=== PATIENT | female | born 1940 | race African-American/Black ===

== ENCOUNTER 2016-07-12 05:44 | Inpatient (IN) | payer MEDICARE, BC ==
--- NOTE | 2016-07-11 09:30 | HP ---
HISTORY AND PHYSICAL: DATE OF VISIT: 07/08/16 DATE OF SURGERY: 07/12/16 PROCEDURE: Right total knee replacement. HISTORY OF PRESENT ILLNESS: The patient is a very pleasant 75-year-old female who presents today for a history and physical examination prior to undergoing a right total knee replacement. In brief, the patient was diagnosed with end- stage osteoarthritis of the right knee and has failed conservative measures such as anti- inflammatories and injections. She has elected to undergo a right total knee replacement by Dr. Farzana Mireles on 07/12/16. PAST MEDICAL HISTORY: 1. Mild persistent asthma, no exacerbation. 2. Gastroesophageal reflux disease. 3. Hypercholesterolemia. 4. History of ovarian malignancy, status post resection. 5. Postmenopausal. 6. Allergic rhinitis. 7. Osteoarthritis. 8. Borderline diabetes type 2, diet controlled. 9. Blind, left eye, congenital third nerve palsy. 10. Hypertension. PAST SURGICAL HISTORY: 1. HIPOLITO/BSO in 1989. 2. Arthroscopic knee surgery, 1998. 3. section x2. 4. Appendectomy. 5. Eye surgery. 6. Boil resection. MEDICATIONS: 1. Magnesium oxide 400 mg. 2. Hydrochlorothiazide 12.5 mg. 3. Active Film. 4. Klor-Con 10 mEq. 5. B complex. 6. Cranberry. 7. Ibuprofen 600 mg. 8. Vitamin D3. 9. Crestor 10 mg. 10. Diltiazem HCl ER 120 mg. 11. Advair Diskus 100/50 mcg/dose p.r.n. 12. Voltaren gel 1%. 13. 400 mg. 14. Aspirin 81 mg. 15. Vitamin B6 250 mg. 16. Fluticasone 500 mcg/ACT. 17. Albuterol inhaler p.r.n. ALLERGIES: PENICILLIN and BACTRIM, both cause skin swelling with rash. FAMILY MEDICAL HISTORY: Positive for lung cancer in father. Positive for high blood pressure in mother. SOCIAL HISTORY: No tobacco. No alcohol use. REVIEW OF SYSTEMS: General: Negative for fever, chills, or night sweats. No known difficulty with anesthesia. HEENT: Negative for headache, lightheadedness, or syncopal episodes. Integument: Negative for abrasions, lesions, or open wounds or difficulties with wound healing. Cardiothoracic: Negative for chest pain, palpitations, or edema. Positive for hypertension. Pulmonary: Negative for shortness of breath with exertion, chronic cough, or COPD. Positive for asthma; however, no recent exacerbation. GI: Negative for nausea, vomiting, or diarrhea. Positive for constipation. Positive for GERD. : Negative for nocturia, urinary frequency or urgency, or kidney problems. Positive history of UTIs with the last UTI being approximately 9 to 12 months ago. Musculoskeletal: Positive for chronic low back pain. Positive for right knee pain. Neuro: Negative for paresthesias or numbness. No history of seizure, strokes, or epilepsy. Endocrine: Positive for borderline diabetes, diet controlled. Negative for thyroid issues. Hematologic: Negative for easy bruising, anemia, or excessive bleeding. No history of DVT or PE. Infectious Disease: No history of hep C or HIV. Positive history of MRSA. PHYSICAL EXAMINATION GENERAL: A well appearing, in no acute distress, alert and oriented x3. VITAL SIGNS: Height 62 inches, weight 218 pounds, pulse 60, blood pressure sitting 120/62, and respirations 16. Pain level 3 and BMI 39.9. HEENT: Normocephalic, atraumatic. EOMI. NECK: Supple. Full range of motion. PULMONARY: Clear to auscultation bilaterally. No crackles, rhonchi, or wheezes. CARDIAC: Regular rate and rhythm. No murmurs, gallops, or rubs. ABDOMEN: Soft, nontender, and nondistended. Positive for obesity. Normoactive bowel sounds. Negative CVA tenderness bilaterally. NEUROLOGIC: Alert and oriented x3. Cranial nerves grossly intact. Sensation is intact to light touch bilateral lower extremities. MUSCULOSKELETAL: Posterior tibial pulses 2+ bilaterally. Positive moderate effusion noted in right knee, tenderness over the medial joint line. Negative calf tenderness on bilaterally. DIAGNOSTIC STUDIES/LAB DATA: Knee x-ray dated 06/06/16 showed osteoarthritis of the right knee, moderate to advanced. IMPRESSION: The patient is a very pleasant 75-year-old female who has elected to undergo a right total knee replacement with Dr. Farzana Mireles on 07/12/16. Percocet and Colace were sent to the [facility] for the patient preoperatively. She will undergo her preoperative clearance at the hospital today. She was seen by her primary care physician at [facility] and was deemed an intermediate risk for the surgery, which was discussed with the patient. She had no other questions or concerns with regards to the plan procedure and will call if any do arise. EMMA CEDENO [id number]/[facility] #: [id number] MTDGonzalez
[2016-07-12] MEDS ORDERED: Dexamethasone IV* 4 MG/ML 1 ML (4 MG) IV SLOW PU ONE (06:00)
[2016-07-12] MEDS ORDERED: Buffered Lidocaine 1% SYR 3ML* 3 ML/SYR SYRINGE INTRADERM ONE (06:00)
[2016-07-12] MEDS ORDERED: Clindamycin 900 MG IVPREMIX(* 900 MG/50 ML SDV IV ONE (06:03)
[2016-07-12] MEDS ORDERED: Dexamethasone IV* 4 MG/ML 1 ML (4 MG) ONE (06:03)
[2016-07-12] MEDS ORDERED: Buffered Lidocaine 1% SYR 3ML* 3 ML/SYR SYRINGE ONE (06:03)
[2016-07-12] MEDS ORDERED: Midazolam* 1 MG/ML 5 ML VIAL (5 MG) ONE (07:24)
[2016-07-12] MEDS ORDERED: KETAMINE HCL* 50 MG/ML 10 ML VIAL ONE (07:24)
[2016-07-12] MEDS ORDERED: Morphine PF AMP (0.5MG/ML)* 5 MG/10 ML AMP ONE (07:24)
[2016-07-12] MEDS ORDERED: Propofol* 10 MG/ML 20 ML BTL IV PUSH ONE (07:25)
[2016-07-12] MEDS ORDERED: Ondansetron INJ* 2 MG/ML VIAL ONE (07:25)
[2016-07-12] MEDS ORDERED: Bupivacaine 0.5% W/EPI SDV* 30 ML VIAL ONE (08:22)
[2016-07-12] MEDS ORDERED: Naloxone* 0.4 MG/ML 1 ML VIAL IV PRN (08:40)
[2016-07-12] MEDS ORDERED: Nalbuphine* 20 MG/ML 1 ML VIAL IV PRN ×2 (08:40)
[2016-07-12] MEDS ORDERED: Ondansetron INJ* 2 MG/ML VIAL IV PRN ×2 (08:40→10:17)
[2016-07-12] MEDS ORDERED: oxyCODONE/Acetamin 5/325 MG* TAB PO PRN (08:40)
[2016-07-12] MEDS ORDERED: fentaNYL* 50 MCG/ML 2 ML VIAL (100 MCG VIAL) IV PRN (08:40)
[2016-07-12] MEDS ORDERED: Bupivacaine 0.5% SDV PF* 30 ML VIAL ONE (08:55)
[2016-07-12] MEDS ORDERED: Lidocaine 2% EPI 1:200000 MPF* 20 ML VIAL ONE (08:55)
[2016-07-12] MEDS ORDERED: Sodium Bicarbonate 8.4% SYR* 10 ML SYRINGE ONE (08:55)
[2016-07-12] MEDS ORDERED: Acetaminophen TAB* 325 MG PO PRN (10:17)
[2016-07-12] MEDS ORDERED: Bisacodyl SUPP* 10 MG SUPP PR PRN (10:17)
[2016-07-12] MEDS ORDERED: Magnesium Hydroxide LIQ* 30 ML UDC PO PRN (10:17)
[2016-07-12] MEDS ORDERED: diPHENhydraMINE IV* 50 MG/ML 1 ml VIAL (BENADRYL) IV PRN (10:17)
[2016-07-12] MEDS ORDERED: Polyethylene Glycol 3350* 17 GM PACKET PO PRN (10:17)
[2016-07-12] MEDS ORDERED: Ondansetron TAB* 4 MG PO PRN (10:17)
[2016-07-12] MEDS ORDERED: Morphine INJ* 2 MG/ML 1 ML CARPUJECT IV PRN (10:17)
--- NOTE | 2016-07-12 10:56 | RAD ---
Indication: Post op total RIGHT knee replacement. Comparison: June 06, 2016 Technique: Portable AP and cross table lateral views RIGHT knee. Report: Status post total knee replacement. Post-op fluid and gas is seen in the joint space and anterior subcutaneous tissues. Alignment is anatomic. No periprosthetic fracture evident. IMPRESSION: Normal post-op appearance following RIGHT total knee replacement.
[2016-07-12] MEDS ORDERED: Nalbuphine* 20 MG/ML 1 ML VIAL ONE (11:24)
[2016-07-12] MEDS: Ropivacaine* 300 MG in NS 0.9% 250 ML* 240 ML EPIDURAL SCH (12:21)
[2016-07-12] MEDS: Scopolamine 1.5 mg* PATCH TRANSDERM SCH (14:16)
[2016-07-12] MEDS: Clindamycin 600 MG IVPREMIX(* 600 MG/50 ML SDV IV SCH ×2 (14:17→22:27)
[2016-07-12] MEDS ORDERED: Dextrose 50% Syringe 50 ML* 25 GM/50 ML SYRINGE IV PUSH PRN (16:26)
[2016-07-12] MEDS ORDERED: Warfarin TAB(*) 6 MG PO ONE (17:00)
[2016-07-12] MEDS: Insulin LISPRO* 1 UNITS UNIT SUBCUT SCH (17:55)
--- NOTE | 2016-07-12 19:58 | CONS ---
HOSPITAL MEDICINE CONSULTATION REPORT: DATE OF CONSULT: 07/12/16 ATTENDING PHYSICIAN: Dr. Farzana Mireles. CONSULTING PHYSICIAN: Dr. Lasha Mcarthur (dictation provided by Manda Blevins NP). REASON FOR CONSULT: Medical co-management in a patient in for right total knee replacement. HISTORY OF PRESENT ILLNESS: Ms. Grace is a 75-year-old female with past medical history of mild asthma, GERD, and hypertension as well as type 2 diabetes that has been diet controlled, who presents today to the hospital for right total knee replacement. Please see the dictated H and P from Dr. Farzana Mireles for complete details. In brief, the patient had ongoing pain in the right knee secondary to osteoarthritis and therefore planned for right total knee replacement by Dr. Mireles. The patient states that prior to coming in to surgery, she was doing well with no acute complaints. PAST MEDICAL HISTORY: 1. Mild persistent asthma, no exacerbation. 2. GERD. 3. Hypercholesterolemia. 4. History of ovarian malignancy, status post resection. 5. Allergic rhinitis. 6. Osteoarthritis. 7. Type 2 diabetes, diet controlled. 8. Left eye blindness, congenital third nerve palsy. 9. Hypertension. 10. History of HIPOLITO-BSO, 1989. 11. Arthroscopic knee surgery, 1998. 12. section x2. 13. Appendectomy. 14. Eye surgery. 15. History of boil resection. MEDICATIONS: 1. Aspirin 81 mg p.o. daily. 2. Cholecalciferol 2000 units p.o. daily. 3. Ibuprofen 600 mg p.o. q.8 hours p.r.n. 4. Vitamin B6 250 mg p.o. daily. 5. Vitamin B complex 1 cap p.o. daily. 6. Diltiazem ER 120 mg p.o. q.a.m. 7. Advair Diskus 100/50 one puff inhaled b.i.d. 8. Hydrochlorothiazide 12.5 mg p.o. daily. 9. Pantoprazole 40 mg p.o. daily. 10. Potassium chloride 10 mEq p.o. b.i.d. ALLERGIES: To PENICILLIN, SULFAMETHOXAZOLE and TRIMETHOPRIM, and LATEX. FAMILY HISTORY: Reviewed and noncontributory. SOCIAL HISTORY: No prior alcohol, tobacco, or drug use. The patient states that her will be the healthcare proxy. REVIEW OF SYSTEMS: A 14-point review of systems was attempted with Ms. Grace, but she was somewhat sedated after surgery, and all those discussed were negative. PHYSICAL EXAM: Vital Signs: Temperature 97, pulse rate 64, respiratory rate 16 , O2 saturation 100% on 4 L nasal cannula, blood pressure 120/61. General: Ms. Grace is lying in bed. She is in no acute distress, calm and cooperative to my examination. Neuro: She is alert and oriented x3. She moves all extremities equally. There is no facial asymmetry or focal weakness. Extraocular movements are intact. Heart: S1, S2. No murmur, rub, or gallop, and regular. Lungs are clear to auscultation bilaterally with no accessory muscle use and good aeration. The abdomen is soft, nontender with bowel sounds positive x4. Extremities: No cyanosis or edema. Skin is intact. DIAGNOSTIC STUDIES/LAB DATA: WBC is 6.7, hemoglobin 12.1, hematocrit 37, platelet count 320. Sodium 140, potassium 3.9, chloride 100, serum bicarbonate 33, BUN 13, creatinine 0.86, glucose 88. Last hemoglobin A1c on 09/09/10 was 6.7. ASSESSMENT AND PLAN: Ms. Grace is a 75-year-old female with a past medical history of hypertension, diet-controlled diabetes, who presents to the hospital with need for right total knee replacement. Our plans and recommendations are as follows: 1. Postop day #0 status post right total knee replacement: Management will be per Orthopedic Surgery. The patient will have PT and OT. She will have pain medications p.r.n. with a bowel regimen and she will have close monitoring of her hemoglobin and hematocrit. 2. Hypertension: Plan to hold hydrochlorothiazide in the a.m., that can be resumed if she is tolerating good oral intake and has stable blood pressure tomorrow. Thus far she has been running 110s to 120s systolically. 3. Type 2 diabetes: The patient is typically diet controlled. I will order blood glucoses q.a.c. with lispro sliding scale, but this can be discontinued if her blood sugar is under good control. 4. DVT prophylaxis with Lovenox and warfarin per Ortho. 5. Disposition per Ortho. TIME SPENT: Approximately 60 minutes was spent on this admission of this patient, more than half the time was spent with the patient at the bedside reviewing the events leading up to this hospitalization, performing the physical examination, and reviewing the plan [place] [id number]/[facility] #: [id number] FREEDOM
[2016-07-12] MEDS: Potassium Chlor TAB* 10 MEQ TAB.ER PO SCH (22:27)
[2016-07-12] MEDS: Docusate CAP* 100 MG PO SCH (22:27)
[2016-07-12] MEDS: FLUTICASONE SALMETEROL INH SCH (22:31)
[2016-07-12] MEDS: oxyCODONE/Acetamin 5/325 MG* TAB PO PRN (23:03)
[2016-07-13] MEDS: oxyCODONE/Acetamin 5/325 MG* TAB PO PRN ×4 (03:50→21:50)
[2016-07-13] MEDS: Clindamycin 600 MG IVPREMIX(* 600 MG/50 ML SDV IV SCH (05:51)
[2016-07-13 06:21] LABS: Hematocrit 29 % (35-47); Hemoglobin 9.1 g/dl (12.0-16.0)
[2016-07-13 06:43] LABS: BUN/Creatinine Ratio 22.2 (8-20); Calcium 8.5 mg/dL (8.6-10.3); EGFR African American 88.9 (>60); EGFR Non-African American 69.1 (>60); Potassium 3.7 mmol/L (3.5-5.0)
--- NOTE | 2016-07-13 07:33 | PN ---
Progress Note - Progress Note SOAP: Subjective: Pt. reports pain is controlled. Objective: RLE - dressing c/d/i, distally +df/pf, full sens lt, 2+ dp pulse. Vital Signs: Temp Pulse Resp BP Pulse Ox 97.8 F 92 16 114/48 100 07/13/16 03:45 07/13/16 03:45 07/13/16 05:50 07/13/16 03:45 07/13/16 03:45 Laboratory Results - last 24 hr 07/12/16 07/13/16 07/13/16 16:55 05:45 05:45 Hgb 9.1 L Hct 29 L INR (Anticoag Therapy) 1.21 H Sodium Potassium Chloride Carbon Dioxide Anion Gap BUN Creatinine Est GFR ( Amer) Est GFR (Non-Af Amer) BUN/Creatinine Ratio Glucose POC Glucose (mg/dL) 172 H Calcium 07/13/16 05:45 Hgb Hct INR (Anticoag Therapy) Sodium 137 Potassium 3.7 Chloride 102 Carbon Dioxide 28 Anion Gap 7 BUN 18 Creatinine 0.81 Est GFR ( Amer) 88.9 Est GFR (Non-Af Amer) 69.1 BUN/Creatinine Ratio 22.2 H Glucose 181 H POC Glucose (mg/dL) Calcium 8.5 L Assessment: 75 yo F pod 1 s/p RTKA Plan: xrays satisfactory. wbat rle - pt/ot 8 mg coumadin tonight, cont lovenox d/c johanna
[2016-07-13] MEDS: Insulin LISPRO* 1 UNITS UNIT SUBCUT SCH ×3 (08:33→17:22)
[2016-07-13] MEDS: Docusate CAP* 100 MG PO SCH ×2 (08:35→20:41)
[2016-07-13] MEDS: Omeprazole CAP* 20 MG PO SCH (08:35)
[2016-07-13] MEDS: Diltiazem CD CAP* 120 MG PO SCH (08:35)
[2016-07-13] MEDS: FLUTICASONE SALMETEROL INH SCH ×2 (08:35→20:53)
[2016-07-13] MEDS: Potassium Chlor TAB* 10 MEQ TAB.ER PO SCH ×2 (08:35→20:41)
[2016-07-13] MEDS: Ropivacaine* 300 MG in NS 0.9% 250 ML* 240 ML EPIDURAL SCH (08:36)
[2016-07-13] MEDS ORDERED: Hydrochlorothiazide TAB* 25 MG PO SCH (09:00)
--- NOTE | 2016-07-13 09:31 | OP ---
DATE OF OPERATION: 07/12/16 - ROOM #347 DATE OF : 42 ATTENDING SURGEON: Farzana Mireles MD CRUDE UNIT OPERATOR: EMMA Hall ANESTHESIOLOGIST: Dr. Sylvester. ANESTHESIA: Spinal. PRE-OP DIAGNOSIS: Severe end-stage degenerative osteoarthritis to the right knee joint. POST-OP DIAGNOSIS: Severe end-stage degenerative osteoarthritis to the right knee joint. OPERATIVE PROCEDURE: Right total knee arthroplasty. TOURNIQUET TIME: 55 minutes. ESTIMATED BLOOD LOSS: 200 cc. COMPLICATIONS: None. SPECIMEN: Bone and cartilage from the right knee joint, sent to pathology. HARDWARE USED: Cemented [employer] total knee hardware with 2 packages of Simplex bone cement. For the femur, a size 5 right narrow femoral components to the tibia of size 3 right tibial base plate. For the patella, a 29-mm 3-peg all poly patella. For the insert, a 11-mm posterior stabilized articular insert. Two packages of Simplex bone cement were used. BRIEF HISTORY/INDICATION: Ms. Grace is a 75-year-old female with years of increasingly severe right knee pain. She failed conservative treatment with the anti-inflammatories, pain medication, intraarticular injection, and physical therapy. Radiographs and physical exam confirmed [id number] severe arthritis in the right knee. She elected to undergo right total knee arthroplasty due to continued pain and decreased quality of life. Informed consent was obtained from the patient. She understood the risks of the procedure included, but were not limited to bleeding, infection, damage to nearby structures, continued pain, need for further surgery, nerve palsy, intraoperative fracture, hardware failure or loosening, stroke, heart attack, blood clot, and . She wished to proceed. INTRAOPERATIVE FINDINGS: Intraoperatively, the patient was noted to have a complete loss of cartilage along the weightbearing surface in the medial and patellofemoral compartments. Significant osteophyte formation. DESCRIPTION OF PROCEDURE: Ms. Grace was identified in the preanesthesia unit. Her right lower extremity was marked as the correct operative side. Informed consent was signed and placed in the chart. The patient was taken to the operating room and spinal anesthesia was placed. Perkins catheter was placed. A tourniquet was placed on the right thigh. Right lower extremity was prepped and draped in the usual sterile fashion. Preop time-out was made to correctly identify the patient's side and site. Appropriate perioperative antibiotics were given within 1 hour of incision. Tourniquet was inflated and total tourniquet time for this procedure was 55 minutes. A 14-cm midline incision was made in the midline position. Electrocautery was used to dissect down to the extensor mechanism. A new 10 blade was used to make a standard medial parapatellar arthrotomy. The patella was subluxed laterally. Electrocautery was used to periosteally elevated soft tissue off the superomedial tibia to the midsagittal plane. The knee was flexed up. Anterior horn of the lateral meniscus and ACL were sharply released. A drill was used to enter the distal femur. Intramedullary distal femoral cutting guide was placed and the oscillating saw was used to make the distal femoral cuts. Next, the external rotation guide was placed on the distal femur. The distal femur was sized to a size 5. The size 5 multi-cutting jig was pinned into position on the distal femur. Oscillating saw was used to make the appropriate 4 chamfer cuts. Any bony fragments were carefully removed. The PCL was completely released. The tibia was subluxed anteriorly. Extramedullary tibial cutting guide was placed and pinned into proper position. Oscillating saw was used to make the proximal tibial cut perpendicular to mechanical axis of the tibia. Proximal bone was carefully removed. The knee was brought out into extension and noted to have good medial and lateral ligamentous balancing. Flexion and extension gap were well balanced. The knee was flexed up. The lamina nurse assessor was placed both medially and laterally. Any remaining meniscus carefully removed with electrocautery. Curved osteotome and curette were used to remove any osteophytes from the posterior femoral condyle. A size 5 narrow right femoral trial was chosen and impacted on to the distal femur. The trial had excellent fit and stability. The box for the posterior stabilized implant was prepared using a reamer and box cut osteotome. A size 3 tibial trial and 9-mm insert trial were placed. The knee was taken through a range of motion and noted to have full extension and 120 degrees of flexion with good patellofemoral tracking. The patella was everted. A 9-mm of patellar bone and cartilage was carefully removed with an oscillating saw. The patella was sized to a size 29. The 3- peg holes were drilled to the size 29 guide. Trial 29 patella was placed and the knee was taken through a range of motion. The knee was stable in all positions. The patellofemoral tracking was satisfactory. At this time, all trials were carefully removed. The tibia was subluxed anteriorly and sized to a size 3. Proximal tibia was prepared using a keel punch. All bony cut surfaces were copiously irrigated with sterile saline and dried. The final implants were cemented into place starting with the tibia, followed by the femur, and lastly the patella. A 11-mm insert was placed while the knee was brought out into full extension. The cement was allowed to fully cure. Any excess cement was carefully removed. The tourniquet was turned down at 55 minutes. Once the cement was fully cured, the 11-mm insert trial was removed. The posterior joint capsule was checked for any bleeding or excess cement. Electrocautery was used to establish meticulous hemostasis. Final insert chosen was a 11-mm posterior stabilized articular insert. This was locked into the position on the tibial tray without difficulty. Stability of the insert was checked and rechecked and noted to be stable. Final range of motion with full extension to 120 degrees of flexion with good patellofemoral tracking. The knee was once again copiously irrigated with sterile saline. The extensor mechanism was closed using interrupted #1 Vicryls. The rest of the incision was closed in a layered fashion using 0 and 2-0 Vicryls. The skin was closed using running 3-0 nylon suture. Sterile Xeroform, 4x4s, Webril, Rickey wrap, and cold pack were placed over the incision. The patient's anesthesia was reversed without difficulty. She was taken to the PACU in stable condition. Intended weightbearing will be weightbearing as tolerated. Intended DVT prophylaxis will be Coumadin with a Lovenox bridge. [id number]/[facility] #: [id number] FREEDOM
[2016-07-13] MEDS: oxyCODONE TAB* 5 MG TAB PO PRN ×2 (10:28→17:27)
[2016-07-13] MEDS: Enoxaparin(*) 30 MG/0.3 ML SYR SUBCUT SCH (10:29)
[2016-07-13] MEDS ORDERED: Warfarin TAB(*) 4 MG PO ONE (17:00)
--- NOTE | 2016-07-13 17:43 | PN ---
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 Patient has been doing fairly well with pain control. She denies CP, SOB, n/v/ d. She is complaining of itching of her back, no other area involved. No history of opiate intolerances. Objective Active Medications: Acetaminophen (Tylenol Tab*) 650 mg PO Q4H PRN PRN Reason: PAIN OR TEMPERATURE Bisacodyl (Dulcolax Supp*) 10 mg SD DAILY PRN PRN Reason: constipation Dextrose (D50w Syringe 50 Ml*) 12.5 gm IV PUSH .FOR FS < 60 - SS PRN PRN Reason: FS < 60 Diltiazem HCl (Cardizem Cd Cap*) 120 mg PO QAM [facility] Last Admin: 07/13/16 08:35 Dose: 120 mg Diphenhydramine HCl (Benadryl Iv*) 12.5 mg IV Q6H PRN PRN Reason: PRURITIS Last Admin: 07/13/16 07:55 Dose: 12.5 mg Docusate Sodium (Colace Cap*) 100 mg PO BID [facility] Last Admin: 07/13/16 08:35 Dose: 100 mg Enoxaparin Sodium (Lovenox(*)) 30 mg SUBCUT Q24H [facility] Last Admin: 07/13/16 10:29 Dose: 30 mg Ropivacaine 300 mg/ Sodium (Chloride) 300 mls @ 0 mls/hr EPIDURAL Q24H [facility]; Per Protocol PRN Reason: Protocol Last Admin: 07/13/16 08:36 Dose: Not Given Lactated Ringer's (Lactated Ringers 1000 Ml Bag*) 1,000 mls @ 2,000 mls/hr IV ONCE PRN PRN Reason: FOR SBP < 90 Lactated Ringer's (Lactated Ringers 1000 Ml Bag*) 1,000 mls @ 100 mls/hr IV PER RATE [facility] Last Admin: 07/13/16 01:30 Dose: 100 mls/hr Insulin Human Lispro (Humalog*) 0 units SUBCUT AC COLE PRN Reason: Protocol Last Admin: 07/13/16 17:22 Dose: Not Given Lactulose (Lactulose*) 30 ml PO Q6H PRN PRN Reason: constipation Magnesium Hydroxide (Milk Of Magnesia Liq*) 30 ml PO Q6H PRN PRN Reason: constipation Morphine Sulfate (Morphine Inj (Syringe)*) 2 mg IV Q2H PRN PRN Reason: PAIN Omeprazole (Prilosec Cap*) 20 mg PO DAILY [facility] Last Admin: 07/13/16 08:35 Dose: 20 mg Ondansetron HCl (Zofran Inj*) 4 mg IV Q6H PRN PRN Reason: NAUSEA/VOMITING Last Admin: 07/12/16 16:09 Dose: 4 mg Ondansetron HCl (Zofran Inj*) 4 mg IV Q6H PRN PRN Reason: nausea Ondansetron HCl (Zofran Tab*) 4 mg PO Q6H PRN PRN Reason: NAUSEA Oxycodone HCl (Roxycodone Tab*) 10 mg PO Q4H PRN PRN Reason: SEVERE PAIN Last Admin: 07/13/16 17:27 Dose: 10 mg Oxycodone/Acetaminophen (Percocet 5/325 Tab*) 1 tab PO Q3H PRN PRN Reason: moderate pain Oxycodone/Acetaminophen (Percocet 5/325 Tab*) 2 tab PO Q4H PRN PRN Reason: moderate pain Last Admin: 07/13/16 13:00 Dose: 2 tab Oxycodone/Acetaminophen (Percocet 5/325 Tab*) 1 tab PO Q3H PRN PRN Reason: PAIN - MODERATE Oxycodone/Acetaminophen (Percocet 5/325 Tab*) 2 tab PO Q3H PRN PRN Reason: PAIN - MODERATE Pharmacy Profile Note (Scopolomine Patch Remove*) 1 note PATCH OFF .AFTER 72 HOURS ONE Stop: 07/15/16 08:45 Pharmacy Profile Note (Coumadin Daily Reminder*) 1 note FOLLOW UP 1700 [facility] Last Admin: 07/13/16 17:25 Dose: 1 note Polyethylene Glycol/Electrolytes (Miralax*) 17 gm PO DAILY PRN PRN Reason: Constipation Potassium Chloride (Klor Con Er Tab*) 10 meq PO BID [facility] Last Admin: 07/13/16 08:35 Dose: 10 meq Fluticasone/Salmeterol (Advair Diskus 100-50*) 1 puff INH BID [facility] Last Admin: 07/13/16 08:35 Dose: Not Given Scopolamine (Transderm-Scop 1.5 Mg Patch*) 1 patch TRANSDERM Q72H [facility] Last Admin: 07/12/16 14:16 Dose: 1 patch Vital Signs: Temp Pulse Resp BP Pulse Ox 99.9 F 91 18 127/48 92 07/13/16 15:54 07/13/16 15:54 07/13/16 17:27 07/13/16 16:04 07/13/16 15:58 Oxygen Devices in Use Now: None Appearance: Well appearing elderly female in NAD. Surrounded by family. 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 She is s/p R ROGER by Dr Mireles. Hospitalists are co-managing. - Patient Problems (1) Status post total right knee replacement Comment: POD #[address] Mireles Management per ortho DVT prophylaxis and discharge planning per ortho (2) Pruritus Comment: Seems to be isolated to her back, so less likely to be drug related No associated rash Suggested to family that the could try to bring in her linens or nightgown as it may be a hypersensitivity to the hospital linens (3) Asthma Comment: No acute exacerbation Cont Advair and prn albuterol (4) GERD (gastroesophageal reflux disease) (5) HTN (hypertension) Comment: Normotensive, resume HCTZ tomorrow am Cont diltiazem (6) HLD (hyperlipidemia) (7) Type 2 diabetes mellitus Comment: Historically diet controlled Monitor glucose during her hospital stay and treat hyperglycemia with SS Humalog (8) Obesity Comment: BMI 40 (9) Blind left eye Comment: CN III palsy (10) Hx of ovarian cancer Status and Disposition: Disposition per ortho. No acute medical concerns.
[2016-07-14] MEDS: oxyCODONE TAB* 5 MG TAB PO PRN (03:16)
[2016-07-14 06:12] LABS: Hematocrit 29 % (35-47); Hemoglobin 9.5 g/dl (12.0-16.0)
[2016-07-14] MEDS: oxyCODONE/Acetamin 5/325 MG* TAB PO PRN ×3 (06:31→20:53)
[2016-07-14] MEDS: Docusate CAP* 100 MG PO SCH ×2 (08:23→20:53)
[2016-07-14] MEDS: Potassium Chlor TAB* 10 MEQ TAB.ER PO SCH ×2 (08:23→20:53)
[2016-07-14] MEDS: Omeprazole CAP* 20 MG PO SCH (08:23)
[2016-07-14] MEDS: Diltiazem CD CAP* 120 MG PO SCH (08:23)
[2016-07-14] MEDS: Hydrochlorothiazide TAB* 25 MG PO SCH (08:25)
[2016-07-14] MEDS: Enoxaparin(*) 30 MG/0.3 ML SYR SUBCUT SCH (08:25)
[2016-07-14] MEDS: Insulin LISPRO* 1 UNITS UNIT SUBCUT SCH ×3 (08:25→17:38)
[2016-07-14] MEDS: Ropivacaine* 300 MG in NS 0.9% 250 ML* 240 ML EPIDURAL SCH (12:29)
[2016-07-14] MEDS: FLUTICASONE SALMETEROL INH SCH ×2 (12:56→20:57)
--- NOTE | 2016-07-14 14:03 | PN ---
Progress Note - Progress Note SOAP: Subjective: Pt. reports severe pain with any movement of r knee. Objective: RLE - dressing changed, inc c/d/i. distally nvi. Vital Signs: Temp Pulse Resp BP Pulse Ox 97.7 F 103 17 143/58 95 07/14/16 11:46 07/14/16 11:46 07/14/16 11:46 07/14/16 11:46 07/14/16 11:46 Laboratory Results - last 24 hr 07/13/16 07/13/16 07/14/16 12:19 17:20 05:39 Hgb 9.5 L Hct 29 L INR (Anticoag Therapy) POC Glucose (mg/dL) 148 H 111 H 07/14/16 07/14/16 07/14/16 05:39 08:04 12:38 Hgb Hct INR (Anticoag Therapy) 1.30 H POC Glucose (mg/dL) 152 H 176 H Assessment: 75 yo F pod 2 s/p RTKA Plan: cont current pain meds, pt. mildly sedated cont pt/ot plan d/c to home with vns tomorrow. 8 mg coumadin tonight, cont lovenox
[2016-07-14] MEDS ORDERED: Warfarin TAB(*) 4 MG PO ONE (17:00)
--- NOTE | 2016-07-14 18:57 | PN ---
Subjective Date of Service: 07/14/16 Interval History: Patient developed some urinary retention overnight so Perkins was replaced. Patient offers no other acute complaints. Good pain control, no n/v. Objective Active Medications: Acetaminophen (Tylenol Tab*) 650 mg PO Q4H PRN PRN Reason: PAIN OR TEMPERATURE Bisacodyl (Dulcolax Supp*) 10 mg [place] DAILY PRN PRN Reason: constipation Dextrose (D50w Syringe 50 Ml*) 12.5 gm IV PUSH .FOR FS < 60 - SS PRN PRN Reason: FS < 60 Diltiazem HCl (Cardizem Cd Cap*) 120 mg PO QAM [facility] Last Admin: 07/14/16 08:23 Dose: 120 mg Diphenhydramine HCl (Benadryl Iv*) 12.5 mg IV Q6H PRN PRN Reason: PRURITIS Last Admin: 07/13/16 07:55 Dose: 12.5 mg Docusate Sodium (Colace Cap*) 100 mg PO BID [facility] Last Admin: 07/14/16 08:23 Dose: 100 mg Enoxaparin Sodium (Lovenox(*)) 30 mg SUBCUT Q24H [facility] Last Admin: 07/14/16 08:25 Dose: 30 mg Hydrochlorothiazide (Hydrodiuril Tab*) 12.5 mg PO DAILY [facility] Last Admin: 07/14/16 08:25 Dose: 12.5 mg Ropivacaine 300 mg/ Sodium (Chloride) 300 mls @ 0 mls/hr EPIDURAL Q24H [facility]; Per Protocol PRN Reason: Protocol Last Admin: 07/14/16 12:29 Dose: Not Given Lactated Ringer's (Lactated Ringers 1000 Ml Bag*) 1,000 mls @ 2,000 mls/hr IV ONCE PRN PRN Reason: FOR SBP < 90 Lactated Ringer's (Lactated Ringers 1000 Ml Bag*) 1,000 mls @ 100 mls/hr IV PER RATE [facility] Last Admin: 07/13/16 01:30 Dose: 100 mls/hr Insulin Human Lispro (Humalog*) 0 units SUBCUT AC [facility] PRN Reason: Protocol Last Admin: 07/14/16 17:38 Dose: Not Given Lactulose (Lactulose*) 30 ml PO Q6H PRN PRN Reason: constipation Magnesium Hydroxide (Milk Of Magnesia Liq*) 30 ml PO Q6H PRN PRN Reason: constipation Morphine Sulfate (Morphine Inj (Syringe)*) 2 mg IV Q2H PRN PRN Reason: PAIN Last Admin: 07/13/16 22:01 Dose: 2 mg Omeprazole (Prilosec Cap*) 20 mg PO DAILY [facility] Last Admin: 07/14/16 08:23 Dose: 20 mg Ondansetron HCl (Zofran Inj*) 4 mg IV Q6H PRN PRN Reason: NAUSEA/VOMITING Last Admin: 07/12/16 16:09 Dose: 4 mg Ondansetron HCl (Zofran Inj*) 4 mg IV Q6H PRN PRN Reason: nausea Last Admin: 07/13/16 22:03 Dose: 4 mg Ondansetron HCl (Zofran Tab*) 4 mg PO Q6H PRN PRN Reason: NAUSEA Oxycodone HCl (Roxycodone Tab*) 10 mg PO Q4H PRN PRN Reason: SEVERE PAIN Last Admin: 07/14/16 03:16 Dose: 10 mg Oxycodone/Acetaminophen (Percocet 5/325 Tab*) 1 tab PO Q3H PRN PRN Reason: moderate pain Oxycodone/Acetaminophen (Percocet 5/325 Tab*) 2 tab PO Q4H PRN PRN Reason: moderate pain Last Admin: 07/14/16 14:42 Dose: 2 tab Oxycodone/Acetaminophen (Percocet 5/325 Tab*) 1 tab PO Q3H PRN PRN Reason: PAIN - MODERATE Oxycodone/Acetaminophen (Percocet 5/325 Tab*) 2 tab PO Q3H PRN PRN Reason: PAIN - MODERATE Last Admin: 07/14/16 06:31 Dose: 2 tab Pharmacy Profile Note (Scopolomine Patch Remove*) 1 note PATCH OFF .AFTER 72 HOURS ONE Stop: 07/15/16 08:45 Pharmacy Profile Note (Coumadin Daily Reminder*) 1 note FOLLOW UP 1700 [facility] Last Admin: 07/13/16 17:25 Dose: 1 note Polyethylene Glycol/Electrolytes (Miralax*) 17 gm PO DAILY [facility] Potassium Chloride (Klor Con Er Tab*) 10 meq PO BID [facility] Last Admin: 07/14/16 08:23 Dose: 10 meq Fluticasone/Salmeterol (Advair Diskus 100-50*) 1 puff INH BID [facility] Last Admin: 07/14/16 12:56 Dose: Not Given Scopolamine (Transderm-Scop 1.5 Mg Patch*) 1 patch TRANSDERM Q72H [facility] Last Admin: 07/12/16 14:16 Dose: 1 patch Vital Signs: Temp Pulse Resp BP Pulse Ox 98.6 F 119 15 149/69 100 07/14/16 15:20 07/14/16 15:20 07/14/16 16:42 07/14/16 15:20 07/14/16 15:20 Oxygen Devices in Use Now: None Appearance: Well appearing, in NAD Eyes: No Scleral Icterus Ears/Nose/Mouth/Throat: - - L eye ptosis Respiratory: Symmetrical Chest Expansion and Respiratory Effort Cardiovascular: NL Sounds; No Murmurs; No JVD, RRR Abdominal: NL Sounds; No Tenderness; No Distention Extremities: - - trace RLE edema, dressing in place over RLE Skin: No Rash or Ulcers Neurological: Alert and Oriented x 3 Result Diagrams: 07/14/16 05:39 07/13/16 05:45 Assess/Plan/Problems-Billing Assessment: This is a 75 yo female with a h/o asthma, GERD, HLD, prior ovarian CA, diet controlled DM, HTN and 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 She is s/p R ROGER by Dr Mireles. Hospitalists are co-managing. - Patient Problems (1) Status post total right knee replacement Comment: POD #[address] Mireles Management per ortho DVT prophylaxis and discharge planning per ortho (2) Urinary retention Comment: Perkins reinserted last night Recommend removing Perkins again this afternoon and monitoring for persistent retention, possibly complicated by constipation, recommend more aggressive bowel regimen (3) Pruritus Comment: Resolved (4) Asthma Comment: No acute exacerbation Cont Advair and prn albuterol (5) GERD (gastroesophageal reflux disease) (6) HTN (hypertension) Comment: Normotensive, resumed HCTZ Cont diltiazem (7) HLD (hyperlipidemia) (8) Type 2 diabetes mellitus Comment: Historically diet controlled Monitor glucose during her hospital stay and treat hyperglycemia with SS Humalog (9) Obesity Comment: BMI 40 (10) Blind left eye Comment: CN III palsy (11) Hx of ovarian cancer Status and Disposition: Disposition per ortho. No acute medical concerns.
[2016-07-15] MEDS: oxyCODONE/Acetamin 5/325 MG* TAB PO PRN ×3 (03:29→13:51)
[2016-07-15 07:09] LABS: Hematocrit 28 % (35-47); Hemoglobin 9.2 g/dl (12.0-16.0)
--- NOTE | 2016-07-15 07:39 | PN ---
Progress Note - Progress Note SOAP: Subjective: Pt. reports pain remains moderate to severe. She is having slow progression with PT. PT feels patient is better suited for SNF and family agrees. Objective: RLE - dressing c/d/i, distally nvi. Vital Signs: Temp Pulse Resp BP Pulse Ox 98.3 F 102 16 151/66 97 07/15/16 03:25 07/15/16 03:25 07/15/16 05:29 07/15/16 03:25 07/15/16 03:25 Laboratory Results - last 24 hr 07/14/16 07/14/16 07/14/16 08:04 12:38 17:36 Hgb Hct INR (Anticoag Therapy) POC Glucose (mg/dL) 152 H 176 H 121 H 07/15/16 07/15/16 06:44 06:44 Hgb 9.2 L Hct 28 L INR (Anticoag Therapy) 1.56 H POC Glucose (mg/dL) Assessment: 75 yo F pod 3 s/p RTKA Plan: cont pt/ot - wbat rle 8 mg coumadin tonight, cont lovenox d/c to snf today would be ideal for pt. will discuss with counseling case manager. spencer carter
[2016-07-15 08:10] VITALS: BP 145/61
[2016-07-15] MEDS ORDERED: Scopolamine PATCH Remove* 1 NOTE MISC PATCH OFF ONE (08:44)
[2016-07-15] MEDS ORDERED: Polyethylene Glycol 3350* 17 GM PACKET PO SCH (09:00)
--- NOTE | 2016-07-15 09:01 | PN ---
Subjective Date of Service: 07/15/16 Interval History: Patient seen and examined at bedside. Pt denies complaints this morning, states pain is controlled. Denies fever, chills, shortness of breaths, chest discomfort , V/D. Pt states that she has not moved her bowels since Monday, 07/11. Pt encouraged to take bowel medications. Pt states that she gets "woozy" when she first gets up, but this is improving. Family History: Unchanged from Admission Social History: Unchanged from Admission Past Medical History: Unchanged from Admission Objective Active Medications: Acetaminophen (Tylenol Tab*) 650 mg PO Q4H PRN Reason: PAIN OR TEMPERATURE Bisacodyl (Dulcolax Supp*) 10 mg [place] DAILY PRN Reason: constipation Dextrose (D50w Syringe 50 Ml*) 12.5 gm IV PUSH .FOR FS < 60 - SS PRN Reason: FS < 60 Diltiazem HCl (Cardizem Cd Cap*) 120 mg PO QAM [facility] Diphenhydramine HCl (Benadryl Iv*) 12.5 mg IV Q6H PRN Reason: PRURITIS Docusate Sodium (Colace Cap*) 100 mg PO BID [facility] Enoxaparin Sodium (Lovenox(*)) 30 mg SUBCUT Q24H [facility] Hydrochlorothiazide (Hydrodiuril Tab*) 12.5 mg PO DAILY [facility] Ropivacaine 300 mg/ Sodium (Chloride) 300 mls @ 0 mls/hr EPIDURAL Q24H [facility]; Per Protocol Reason: Protocol Lactated Ringer's (Lactated Ringers 1000 Ml Bag*) 1,000 mls @ 2,000 mls/hr IV ONCE PRN Reason: FOR SBP < 90 Lactated Ringer's (Lactated Ringers 1000 Ml Bag*) 1,000 mls @ 100 mls/hr IV PER RATE [facility] Insulin Human Lispro (Humalog*) 0 units SUBCUT AC [facility] Lactulose (Lactulose*) 30 ml PO Q6H PRN Reason: constipation Magnesium Hydroxide (Milk Of Magnesia Liq*) 30 ml PO Q6H PRN Reason: constipation Morphine Sulfate (Morphine Inj (Syringe)*) 2 mg IV Q2H PRN Reason: PAIN Omeprazole (Prilosec Cap*) 20 mg PO DAILY [facility] Ondansetron HCl (Zofran Inj*) 4 mg IV Q6H PRN Reason: NAUSEA/VOMITING Ondansetron HCl (Zofran Inj*) 4 mg IV Q6H PRN Reason: nausea Ondansetron HCl (Zofran Tab*) 4 mg PO Q6H PRN Reason: NAUSEA Oxycodone HCl (Roxycodone Tab*) 10 mg PO Q4H PRN Reason: SEVERE PAIN Oxycodone/Acetaminophen (Percocet 5/325 Tab*) 1 tab PO Q3H PRN Reason: moderate pain Oxycodone/Acetaminophen (Percocet 5/325 Tab*) 2 tab PO Q4H PRN Reason: moderate pain Oxycodone/Acetaminophen (Percocet 5/325 Tab*) 1 tab PO Q3H PRN Reason: PAIN - MODERATE Oxycodone/Acetaminophen (Percocet 5/325 Tab*) 2 tab PO Q3H PRN Reason: PAIN - MODERATE Pharmacy Profile Note (Coumadin Daily Reminder*) 1 note FOLLOW UP 1700 [facility] Polyethylene Glycol/Electrolytes (Miralax*) 17 gm PO DAILY [facility] Potassium Chloride (Klor Con Er Tab*) 10 meq PO BID [facility] Fluticasone/Salmeterol (Advair Diskus 100-50*) 1 puff INH BID [facility] Scopolamine (Transderm-Scop 1.5 Mg Patch*) 1 patch TRANSDERM Q[facility]H [facility] Vital Signs 07/14/16 07/14/16 07/14/16 10:31 11:46 14:42 Temperature 97.7 F Pulse Rate 103 Respiratory 12 17 16 Rate Blood Pressure 143/58 (mmHg) O2 Sat by Pulse 95 Oximetry 07/14/16 07/14/16 07/14/16 15:20 16:42 19:21 Temperature 98.6 F 99.4 F Pulse Rate 119 106 Respiratory 20 15 18 Rate Blood Pressure 149/69 145/59 (mmHg) O2 Sat by Pulse 100 100 Oximetry 07/14/16 07/15/16 07/15/16 23:43 03:25 03:29 Temperature 100.4 F 98.3 F Pulse Rate 105 102 Respiratory 20 16 16 Rate Blood Pressure 143/57 151/66 (mmHg) O2 Sat by Pulse 94 97 Oximetry 07/15/16 07/15/16 05:29 07:42 Temperature 98.8 F Pulse Rate 96 Respiratory 16 18 Rate Blood Pressure 145/61 (mmHg) O2 Sat by Pulse 94 Oximetry Oxygen Devices in Use Now: None Appearance: NAD, sitting up in a chair. Eyes: No Scleral Icterus, PERRLA Ears/Nose/Mouth/Throat: NL Teeth, Lips, Gums, Mucous Membranes Moist Neck: NL Appearance and Movements; NL JVP, Trachea Midline Respiratory: Symmetrical Chest Expansion and Respiratory Effort, Clear to Auscultation Cardiovascular: NL Sounds; No Murmurs; No JVD, RRR Abdominal: NL Sounds; No Tenderness; No Distention - Bowel sounds present. Extremities: - - Trace to 1+ to bilateral LE. Skin: No Rash or Ulcers, - - Dressing to right knee clean, dry and intact. Neurological: Alert and Oriented x 3, NL Muscle Strength and Tone Lines/Tubes/Other Access: Clean, Dry and Intact Peripheral IV - site benign. Nutrition: Taking PO's Result Diagrams: 07/15/16 06:44 07/13/16 05:45 Assess/Plan/Problems-Billing Assessment: Ms. 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 She is s/p R ROGER by Dr Mireles. Hospitalists are co-managing. - Patient Problems (1) Status post total right knee replacement Code(s): Z96.651 - PRESENCE OF RIGHT ARTIFICIAL KNEE JOINT SNOMED Code(s): 7623031936195 Comment: POD #3. Management per ortho. HH stable. Continue PT/OT. Discharge planning per ortho. (2) Urinary retention Code(s): R33.9 - RETENTION OF URINE, UNSPECIFIED SNOMED Code(s): 732095578 Comment: Spencer removed yesterday, Pt has been able to urinate since spencer removal. Suspect retention, possibly complicated by constipation, recommend continuing more aggressive bowel regimen. (3) Pruritus Code(s): L29.9 - PRURITUS, UNSPECIFIED SNOMED Code(s): 381817431 Comment: Resolved. (4) Asthma Code(s): J45.909 - UNSPECIFIED ASTHMA, UNCOMPLICATED SNOMED Code(s): 820200111 Comment: No acute exacerbation. Continue Advair and prn albuterol. (5) GERD (gastroesophageal reflux disease) Code(s): K21.9 - GASTRO-ESOPHAGEAL REFLUX DISEASE WITHOUT ESOPHAGITIS SNOMED Code(s): 882620949 Comment: Continue Omeprazole. (6) HTN (hypertension) Code(s): I10 - ESSENTIAL (PRIMARY) HYPERTENSION SNOMED Code(s): 47546489 Comment: Normotensive, Continue HCTZ and diltiazem (7) Type 2 diabetes mellitus Comment: Glucose 120-170s. Historically diet controlled. Continue to monitor glucose during her hospital stay and treat hyperglycemia with SS Humalog. (8) Blind left eye Code(s): H54.42 - BLINDNESS, LEFT EYE, NORMAL VISION RIGHT EYE SNOMED Code(s) : 457004540 Comment: HX: CN III palsy (9) Obesity Code(s): E66.9 - OBESITY, UNSPECIFIED SNOMED Code(s): 486129849 Comment: BMI 40 (10) DVT prophylaxis Code(s): UAP0994 - SNOMED Code(s): 839741698 Comment: Lovenox bridge to Warfarin per Ortho. (11) Full code status Code(s): Z78.9 - OTHER SPECIFIED HEALTH STATUS SNOMED Code(s): 184339417 Status and Disposition: Disposition per ortho. No acute medical concerns. Awaiting possible NHP.
[2016-07-15] MEDS: Docusate CAP* 100 MG PO SCH (09:06)
[2016-07-15] MEDS: Omeprazole CAP* 20 MG PO SCH (09:06)
[2016-07-15] MEDS: Potassium Chlor TAB* 10 MEQ TAB.ER PO SCH (09:06)
[2016-07-15] MEDS: Scopolamine 1.5 mg* PATCH TRANSDERM SCH (09:06)
[2016-07-15] MEDS: Diltiazem CD CAP* 120 MG PO SCH (09:07)
[2016-07-15] MEDS: Enoxaparin(*) 30 MG/0.3 ML SYR SUBCUT SCH (09:07)
[2016-07-15] MEDS: Insulin LISPRO* 1 UNITS UNIT SUBCUT SCH ×2 (09:07→13:08)
[2016-07-15] MEDS: FLUTICASONE SALMETEROL INH SCH (09:08)
[2016-07-15] MEDS: Ropivacaine* 300 MG in NS 0.9% 250 ML* 240 ML EPIDURAL SCH (09:09)
[2016-07-15] MEDS: Hydrochlorothiazide TAB* 25 MG PO SCH (09:09)
--- NOTE | 2016-07-15 14:50 | DS ---
DISCHARGE SUMMARY: DATE OF ADMISSION: 07/12/16 DATE OF DISCHARGE: 07/15/16 PROVIDER: Dr. Farzana Mireles. ADMITTING DIAGNOSIS: Right knee severe osteoarthritis. SECONDARY DIAGNOSES: 1. Mild persistent asthma, no exacerbations. 2. Gastroesophageal reflux disease. 3. Hypercholesterolemia. 4. History of ovarian malignancy, status post resection. 5. Postmenopausal. 6. Allergic rhinitis. 7. Osteoarthritis. 8. Borderline diabetes type 2, diet controlled. 9. Blind left eye, congenital third nerve palsy. 10. Hypertension. PROCEDURE: Right total knee arthroplasty. CONSULTATIONS: Hospitalists, occupational therapy, and physical therapy. HISTORY OF PRESENT ILLNESS: Ms. Grace is a 75-year-old female with a history of ongoing right knee pain due to severe osteoarthritis of the right knee. The patient has failed conservative measures such as anti-inflammatories and injections; therefore elected to undergo right total knee replacement with Dr. Mireles on 07/12/16. HOSPITAL COURSE: Ms. Grace was admitted to [facility] on 07/12/16. She underwent a right total hip arthroplasty. Postoperatively, she recovered in the short-stay surgical unit. On postop 1, her Perkins was removed. She was able to urinate on her own. She was advanced to regular diet without difficulty and her pain was controlled with p.o. Percocet and she was restarted on her home medications. Her labs and vitals remained stable. She was able to weight-bear as tolerated on the left lower extremity. She advanced appropriately with physical therapy and occupational therapy. Her DVT prophylaxis is managed with Lovenox and Coumadin until she reached the therapeutic INR. By postop day 3, she is orthopedically and medically stable for discharge to a residential. DISCHARGE CONDITION: Stable. DISCHARGE MEDICATIONS: Home medications continued to include: 1. Pantoprazole 40 mg p.o. daily. 2. Potassium chloride tablets 10 mEq p.o. twice a day. 3. Hydrochlorothiazide 12.5 mg p.o. daily. 4. Fluticasone/salmeterol 100/50 one puff inhalation twice a day. 5. Diltiazem HCL ER 100 mg p.o. q.a.m. 6. Vitamin B complex 1 cap p.o. daily. 7. Paroxetine HCL mg p.o. daily. 8. Vitamin D3 one cap 2000 units p.o. daily. New medications at discharge to include: 1. Percocet 5/325 one to two tabs q.4 to 6 hours as needed for pain. 2. Colace 100 mg twice a day for constipation. 3. Coumadin 2 mg tablets, take as directed by doctor. DISCHARGE INSTRUCTIONS: The patient will be discharged to a residential today. She is weight-bearing as tolerated. She is to continue activity as physical therapy direct. She is to keep her wound clean and dry. They may redress the wound. She may shower, but she is not to submerge the wound such as pools, baths, or hot tubs. She will follow up with Dr. Mireles in 10 to 14 days for a followup and suture removal. She will take Coumadin for DVT prophylaxis, Percocet for pain, and Colace for constipation. She is to go to the ER for chest pain, shortness of breath, calf pain or swelling, and fever greater than 101.5. She understands that she may call the office with any questions or concerns. EMMA HOGUE [id number]/[facility] #: [id number] [place]
== END 2016-07-15 14:05 | DRG 470 ==
LOC: AA 05:44 → SSU 10:17 → EDSTATUS 12:00 → SSU 13:10
PROVIDERS: ADMIT Orthopaedic Surgery Adult Reconstructive Orthopaedic Surgery; ATTEND Orthopaedic Surgery Adult Reconstructive Orthopaedic Surgery
PROC: 0SRC0J9 Replacement of Right Knee Joint with Synthetic Substitute, Cemented, Open Approach (ICD-10-PCS; principal; 2016-07-12 07:30)
PROC: 0T9B70Z Drainage of Bladder with Drainage Device, Via Natural or Artificial Opening (ICD-10-PCS; 2016-07-13)
DX: M17.11 Unilateral primary osteoarthritis, right knee (principal); I42.8 Other cardiomyopathies; E11.9 Type 2 diabetes mellitus without complications; Z68.41 Body mass index [BMI] 40.0-44.9, adult; I10 Essential (primary) hypertension; J45.909 Unspecified asthma, uncomplicated; Z88.0 Allergy status to penicillin; Z91.040 Latex allergy status; Z85.43 Personal history of malignant neoplasm of ovary; Z82.49 Family history of ischemic heart disease and other diseases of the circulatory system; Z80.1 Family history of malignant neoplasm of trachea, bronchus and lung; Z87.891 Personal history of nicotine dependence; K21.9 Gastro-esophageal reflux disease without esophagitis; H54.42 Blindness, left eye, normal vision right eye; Z88.2 Allergy status to sulfonamides; Z88.8 Allergy status to other drugs, medicaments and biological substances; H47.099 Other disorders of optic nerve, not elsewhere classified, unspecified eye; Z96.641 Presence of right artificial hip joint; L29.9 Pruritus, unspecified; E78.5 Hyperlipidemia, unspecified; R33.9 Retention of urine, unspecified; Z88.1 Allergy status to other antibiotic agents; E66.01 Morbid (severe) obesity due to excess calories; N95.9 Unspecified menopausal and perimenopausal disorder; Z79.01 Long term (current) use of anticoagulants
CPT/HCPCS: 36415; 62327; 80048; 85014; 85018; 85610; 88305; 88311; 94760; A9270-GY; C1776; J1100; J1200; J1650; J2250; J2270; J2300; J2405; J2704; J2795

== ENCOUNTER 2016-07-22 21:25 | Emergency (ER) | payer MEDICARE, BC ==
[2016-07-22 21:43] VITALS: BP 144/54
[2016-07-22] MEDS ORDERED: cefTRIAXone(*) 1 GM in NS 0.9% 50 ML* 50 ML IVPB ONE (22:52)
[2016-07-22 22:53] LABS: Urine Bacteria 1+ (Absent); Urine Bilirubin Negative (Negative); Urine Glucose Negative (Negative); Urine Nitrite Positive (Negative)
[2016-07-22] MEDS ORDERED: Vancomycin(*) 1,000 MG in NS 0.9% 250 ML* 250 ML IVPB ONE (23:00)
[2016-07-22] MEDS ORDERED: Morphine INJ* 2 MG/ML 1 ML CARPUJECT IV ONE (23:30)
[2016-07-22] MEDS ORDERED: Lidocaine 1% INJ* 10 MG/ML 30 ML SDV ONE (23:53)
[2016-07-23 01:08] LABS: Body Fluid Total Cells Counted 100
[2016-07-23 01:10] LABS: Body Fluid Appearance Bloody
[2016-07-23 01:11] LABS: Body Fluid WBC 11129 /mcL
--- NOTE | 2016-07-23 04:16 | CONS ---
CONSULTATION REPORT: DATE OF CONSULT: 07/22/16 CHIEF COMPLAINT: Right knee pain, status post total knee replacement 10 days ago. HISTORY OF PRESENT ILLNESS: Isabel is 75. She underwent right total knee replacement by Dr. Mireles roughly 10 days ago. She went to the intermediate facility after her discharge and was having pain there. Her family is with her today and they state that she never had a fever. She was doing well enough yesterday that they discharged her to home from the intermediate facility. The family became concerned about the general appearance and some warmth around the knee, and the fact that it was very swollen and still painful and they decided to come into the emergency room tonight. They state that she has not had a fever at home. She denies any fevers at the rehab facility. She maybe had a couple of chills. She has also been very constipated and had a little bit of difficulty urinating. Other than that, she denies feeling sick. She rates the right knee pain as moderate and then severe when she tries to move it. She has been going slow with the physical therapy due to the pain. PAST MEDICAL HISTORY: Reviewed. She does have history of some borderline type 2 diabetes that is diet controlled. She is obese, but otherwise relatively healthy. Denies a history of blood clots or infections. PAST SURGICAL HISTORY: Reviewed. Pertinently, she had the recent right total knee replacement 10 days ago. MEDICATIONS: Reviewed. ALLERGIES: Reviewed. Include PCN and bactrim and latex FAMILY HISTORY: Reviewed. Noncontributory SOCIAL HISTORY: Reviewed. Noncontributory, She is back at home. REVIEW OF SYSTEMS: A 14-point review of systems was conducted and is positive for right knee pain and possibly some chills, and constipation and a little difficulty urinating. PHYSICAL EXAM: General: Awake, alert, and oriented. Skin: There is no erythema. There is no induration. The incision is clean, dry, and intact without any signs of any recent drainage. Musculoskeletal: She has a right knee effusion. There is some mild warmth about the right knee. She holds the knee in an extended position. Overall, the alignment looks very nice. There is some ecchymosis about the knee as well. Vitals: Temperature is 98.3, heart rate is 109, blood pressure is 144/54, respiratory rate is 18, and oxygen saturation is 97%. LABORATORY DATA: No labs are currently available other than UA as they have been having a very difficult time getting blood work due to venous access. IMAGING: Venous duplex was performed and per the psychiatric tech's provisional notations, there is no DVT seen. IMPRESSION: Status post right total knee arthroplasty 10 days ago with no clinical signs of infection and without fever, but persistently painful and swollen right knee. PLAN: Given that there was enough concern on the family's side to bring her to the hospital tonight, I think that the simplest and most appropriate thing to do is to do a right knee aspiration. This was performed. Please see the dedicated procedure part of the note for the commentary on that. In short, there was aspiration of hemarthrosis. There was a good string sign and there was no overt pus or the fluid did not look frankly infected. Ultimately, she is still in the emergency room. We are going to watch her for a little while longer. She continues to remain afebrile and Gram stain is negative and they would like to return home. I think I would feel comfortable with them going home and they could follow up with Dr. Mireles on Monday as she is in the clinic on Monday and I have spoken with Dr. Mireles and she would be happy to see her on Monday. We could certainly follow up the cultures until they are finalized over the weekend and bring her back. Given that she is not really sick and clinically stable, I do not think that she has to stay in the hospital, but certainly if she feels like she is in too much pain and needs to spend a night or two in the hospital, we can certainly arrange for that and seems very appropriate. Ultimately, we are going to watch her for a little while longer and get her admitted if she needs to be admitted, or if everything checks out, we will get her back home and she can follow up with Dr. Mireles on Monday. Over 50 minutes was spent in performing the consultation on this patient, of which more than half was spent in the counseling and the coordination of care. PROCEDURE: Informed verbal consent was obtained and the area about the right total knee was copiously cleansed with Betadine. I then allowed the Betadine to dry completely. I then injected 3 mL of 1% plain lidocaine using a 25-gauge needle at the site of the anticipated aspiration into the skin and subcutaneous tissue. After waiting a couple of minutes for the anesthetic to take effect, I then introduced an 18-gauge spinal needle into the knee capsule. I then withdrew the stylus and aspirated 20 cc of hemarthrosis. There was no sign of purulence or overt infection. It appeared to be quite normal post total knee hemarthrosis. I then passed off the specimen and sent it to the lab. I then hooked up another 10 cc syringe and aspirated a little more of the hemarthrosis. I then withdrew the needle and applied a little pressure dressing as she is anticoagulated post total knee. She tolerated this well. [id number]/[facility] #: [id number]
--- NOTE | 2016-07-23 06:31 | ED ---
Lalitha Ramirez Michael, scribed for Ke Claire MD on 07/22/16 at 2308 . Lower Extremity - HPI Summary HPI Summary: 75 y/o female was BIBA to the ED presenting with RLE pain that started one day ago and has worsened throughout today. The RLE pain is aggravated with palpation and is hot to touch. She also c/o RLE swelling. erythema, and chills. The pt denies fever, SOB, and CP. She had right knee surgery on 07/12/[address] Mireles and finished rehab yesterday. The PMHx is significant for asthma and former DM. IF THERE IS ONE, PLEASE SEE DICTATION BY DR. CLAIRE FOR FURTHER INFORMATION - History of Current Complaint Chief Complaint: EDSoftTissueLowExtr Stated Complaint: RIGHT KNEE COMPLAINT Time Seen by Provider: 07/22/16 22:37 Hx Obtained From: Patient, EMS, Medical Records Onset of Pain: Prior to Arrival Onset/Duration: Still Present Severity Initially: Moderate Severity Currently: Moderate Pain Intensity: 7 Pain Scale Used: 0-10 Numeric Timing: Constant Location: Is Discrete @ - RLE Associated Signs And Symptoms: Positive: Negative - SOB. CP., Swelling, Redness , Other - RLE pain. chills.. Negative: Fever Aggravating Factor(s): Other - palpation - Allergies/Home Medications Allergies/Adverse Reactions: Allergies Allergy/AdvReac Type Severity Reaction Status Date / Time Penicillins Allergy Intermediate Rash Verified 07/22/16 21:41 Sulfamethoxazole Allergy Intermediate Rash Verified 07/22/16 21:41 w/Trimethoprim [From Bactrim] Latex Allergy Mild Unknown Verified 07/22/16 21:41 Reaction Details PMH/Surg Hx/FS Hx/Imm Hx Endocrine/Hematology History: Reports: Hx Diabetes - borderline DM II Denies: Hx Thyroid Disease Cardiovascular History: Reports: Hx Hypertension Respiratory History: Reports: Hx Asthma Denies: Hx Chronic Obstructive Pulmonary Disease (COPD) GI History: Reports: Hx Gastroesophageal Reflux Disease Denies: Hx Ulcer History: Reports: Hx Kidney Infection - HX OF UTI'S Musculoskeletal History: Reports: Hx Arthritis Sensory History: Reports: Hx Cataracts - NO SURGERY YET, Hx Contacts or Glasses , Other Sensory Impairments - Left eye surgeries and difficutly seeing Denies: Hx Hearing Aid Opthamlomology History: Reports: Hx Cataracts - NO SURGERY YET, Hx Contacts or Glasses, Other Sensory Impairments - Left eye surgeries and difficutly seeing - Cancer History Cancer Type, Location and Year: Ovarian Cancer 1998 Hx Chemotherapy: Yes - OVARIAN CA 1998 - Surgical History Surgery Procedure, Year, and Place: LEFT EYE SX IN HIGH SCHOOL. APPENDECTOMY AT 10 YEARS OLD. 2- 1982, 1983. Hysterectomy. OVARIAN CA 1998 Hx Anesthesia Reactions: Yes - Hard to wake - Immunization History Date of Tetanus Vaccine: UTD Date of Influenza Vaccine: fall 2015 Infectious Disease History: No Infectious Disease History: Reports: Hx Hepatitis, Hx of Known/Suspected MRSA - In buttock abcess in 2013 Denies: Hx Human Immunodeficiency Virus (HIV), History Other Infectious Disease, Traveled Outside the [place] in Last 30 Days - Family History Known Family History: Positive: Hypertension, Diabetes - Social History Occupation: Retired Lives: With Family Alcohol Use: None Substance Use Type: Reports: None Smoking Status (MU): Former Smoker Type: Cigarettes Have You Smoked in the Last Year: No Review of Systems Positive: Chills. Negative: Fever Negative: Chest Pain Negative: Shortness Of Breath Positive: Other - RLE pain with swelling and erythema All Other Systems Reviewed And Are Negative: Yes Physical Exam - Summary Physical Exam Summary: GENERAL: Awake, alert, oriented, no acute distress, very pleasant HEENT: Head is normocephalipolc, atraumatic, anicteric sclera, clear conjunctiva , mucous membranes moist, no erythema, no discharge, no lesions, neck is supple , trachea is midline, no JVD CARDIAC: Tachycardia, S1, S2, no rub, no murmur, no gallop, 2+ radial and pedal pulses bilaterally RESPIRATORY: Clear to auscultation bilaterally with no rales, rhonchi, or wheezes, non-tender ABDOMEN: Bowel sounds positive, no bruit, soft, non-tender, no CVA tenderness EXTREMITIES: LLE-non tendere, discomfort with passive ROM, erythema, edema, no crepitus NEUROLOGICAL: Mood is appropriate, moving all extremities in a grossly normal manner Triage Information Reviewed: Yes Vital Signs On Initial Exam: Initial Vitals Temp Pulse Resp BP Pulse Ox 98.3 F 109 18 144/54 97 07/22/16 21:33 07/22/16 21:33 07/22/16 21:33 07/22/16 21:33 07/22/16 21:33 Vital Signs Reviewed: Yes - Jessy Coma Scale Coma Scale Total: 15 Diagnostics - Vital Signs Vital Signs Temp Pulse Resp BP Pulse Ox 07/22/16 21:33 98.3 F 109 18 144/54 97 - Laboratory Lab Statement: Any lab studies that have been ordered have been reviewed, and results considered in the medical decision making process. - Radiology Knee XR Xray Interpretation: No Acute Changes Radiology Interpretation Completed By: ED Physician - Additional Comments Diagnostic Additional Comments: Venous Doppler Study: Radiologist- right lower extremity venous duplex. negative DVT. Lower Extremity Course/Dx - Course Course Of Treatment: Consulted Dr. Byrd (Ortho) at 2250-told consult Dr. Mireles and will aspirate the pt. Consulted Dr. Mireles (Ortho) at 2255-discussed pt and will have Dr. Byrd aspirate the pt. Dr. Byrd visited pt. Spoke with Dr. Byrd at 0030-long discussion about collecting blood-Dr. Byrd states it is not necessary and to wait for gram stain results. If negative pt can be discharged home. Recommended to get labs and obtain femoral stick - Diagnoses Provider Diagnoses: RLE post operative pain Discharge - Discharge Plan Condition: Stable Disposition: HOME Patient Education Materials: Pain Management After Surgery (GEN) Referrals: Farzana Mireles MD [Medical Doctor] - Additional Instructions: You will call Dr. Mireles's office today and will been seen on Monday07/25/16. PLEASE RETURN TO THE EMERGENCY DEPARTMENT FOR NAUSEA, VOMITING, FEVER, PHOTOPHOBIA, CHEST PAIN, OR IF SYMPTOMS WORSEN. The documentation as recorded by the Lalitha carbajal Michael accurately reflects the service I personally performed and the decisions made by me, Ke Claire MD.
--- NOTE | 2016-07-23 07:26 | RAD ---
INDICATION: Right lower extremity swelling status post recent knee replacement surgery. COMPARISON: Comparison is made with prior study from December 29, 2010. TECHNIQUE: Multiple real-time, color flow and Doppler tracings of the right lower extremity were obtained. FINDINGS: The common femoral, femoral, profunda femoral and popliteal veins all demonstrate normal compressibility, augmentation with compression and phasic response with respiration. The posterior tibial and peroneal veins demonstrate normal compressibility and augmentation with compression. IMPRESSION: NO EVIDENCE FOR DEEP VENOUS THROMBOSIS.
--- NOTE | 2016-07-23 07:55 | RAD ---
INDICATION: Swelling, recent right knee replacement surgery. COMPARISON: Comparison is made with a prior x-ray study of the right knee from July 12 2016. TECHNIQUE: 2 views of the right knee were obtained. FINDINGS: The patient is status post total right knee replacement surgery. The bones and prostheses are in normal alignment. There is no evidence for loosening. There is a joint effusion present. IMPRESSION: STATUS POST RECENT RIGHT TOTAL KNEE REPLACEMENT SURGERY. JOINT EFFUSION, OTHERWISE UNREMARKABLE STUDY.
--- NOTE | 2016-07-26 08:05 | PN ---
Progress Note - Progress Note Note: klebsiella PNA grew urine culture. Patient called. bactrim sent to pharmacy. patient notified. nothing further
== END 2016-07-23 02:40 | disposition home or self-care (01) ==
LOC: ED 21:25
DX: G89.18 Other acute postprocedural pain (principal); M25.561 Pain in right knee; R22.41 Localized swelling, mass and lump, right lower limb; Z96.651 Presence of right artificial knee joint; E66.9 Obesity, unspecified
CPT/HCPCS: 20605; 36415; 81003; 81015; 87070; 87077; 87086; 87186; 87205; 87640; 87641; 89051; 96365; 96375; 99283

== ENCOUNTER 2018-03-16 11:42 | Emergency (ER) | payer MEDICARE, BC ==
--- NOTE | 2018-03-16 12:12 | ED ---
GI/ HPI - HPI Summary HPI Summary: This patient is a 77 year old F presenting to [facility] with a chief complaint of constipation, her last bm was 3 days ago. The patient rates the pain 9/10 in severity. Symptoms alleviated by nothing, pt took Miralax without relief. Patient reports rectal pain, nausea, and hemorrhoid irritation. - History of Current Complaint Chief Complaint: EDRectalPain Time Seen by Provider: 03/16/18 11:58 Stated Complaint: CONSTIPATION Hx Obtained From: Patient Onset/Duration: Still Present Timing: Constant Severity: Moderate Pain Intensity: 9 Location of Pain: Rectal Associated Signs and Symptoms: Positive: Constipation, Other: - rectal pain Alleviating Factor(s): Nothing - Additional Pertinent History Primary Care Physician: [id number] - Allergy/Home Medications Allergies/Adverse Reactions: Allergies Allergy/AdvReac Type Severity Reaction Status Date / Time latex Allergy Unknown Verified 03/16/18 12:23 Reaction Details Penicillins Allergy Rash Verified 03/16/18 12:23 Sulfa (Sulfonamide Allergy Rash Verified 03/16/18 12:23 Antibiotics) Home Medications: Home Medications Albuterol 2.5MG/3ML (0.083%)* [Ventolin 2.5 MG/3 ML NEB.CASPER*] 2.5 mg INH Q6H PRN 03/16/18 [History Confirmed 03/16/18] Aspirin EC TAB* [Ecotrin EC Low Dose 81 MG*] 81 mg PO DAILY 03/16/18 [History Confirmed 03/16/18] Azelastine 0.15% NASAL(NF) [Astepro 0.15% NASAL (NF)] 2 spray BOTH NARES BID [History Confirmed 03/16/18] Cranberry Conc/C/Bacill Coag [Cranberry Tablet] 1 tab PO DAILY 03/16/18 [ History Confirmed 03/16/18] Fluticasone NASAL SPRAY 50MCG* [Flonase NASAL SPRAY 50MCG*] 2 spray BOTH NARES DAILY 03/16/18 [History Confirmed 03/16/18] Hydrochlorothiazide TAB* [Hydrodiuril TAB*] 12.5 mg PO QAM 03/16/18 [History Confirmed 03/16/18] Magnesium Oxide TAB* [MagOx 400 TAB*] 800 mg PO BID WITH MEALS 03/16/18 [ History Confirmed 03/16/18] Potassium Chlor TAB* [Klor Con ER TAB*] 20 meq PO DAILY 03/16/18 [History Confirmed 03/16/18] Rosuvastatin (NF) [Crestor] 20 mg PO DAILY 03/16/18 [History Confirmed 03/16/18] dilTIAZem HCl [Diltiazem 24Hr ER] 120 mg PO QAM 03/16/18 [History Confirmed ] PMH/Surg Hx/FS Hx/Imm Hx Endocrine/Hematology History: Reports: Hx Diabetes - borderline DM II Denies: Hx Thyroid Disease Cardiovascular History: Reports: Hx Hypertension Respiratory History: Reports: Hx Asthma Denies: Hx Chronic Obstructive Pulmonary Disease (COPD) GI History: Reports: Hx Gastroesophageal Reflux Disease Denies: Hx Ulcer History: Reports: Hx Kidney Infection - HX OF UTI'S Musculoskeletal History: Reports: Hx Arthritis Sensory History: Reports: Hx Cataracts - NO SURGERY YET, Hx Contacts or Glasses , Other Sensory Impairments - Left eye surgeries and difficutly seeing Denies: Hx Hearing Aid Opthamlomology History: Reports: Hx Cataracts - NO SURGERY YET, Hx Contacts or Glasses, Other Sensory Impairments - Left eye surgeries and difficutly seeing - Cancer History Cancer Type, Location and Year: Ovarian Cancer 1998 Hx Chemotherapy: Yes - OVARIAN CA 1998 Hx Radiation Therapy: No - Surgical History Surgery Procedure, Year, and Place: LEFT EYE SX IN HIGH SCHOOL. APPENDECTOMY AT 10 YEARS OLD. 2- 1982, 1983. Hysterectomy. OVARIAN CA 1998 Hx Anesthesia Reactions: Yes - Hard to wake - Immunization History Date of Tetanus Vaccine: UTD Date of Influenza Vaccine: fall 2015 Infectious Disease History: No Infectious Disease History: Reports: Hx Hepatitis, Hx of Known/Suspected MRSA - In buttock abcess in 2013 Denies: Hx Human Immunodeficiency Virus (HIV), History Other Infectious Disease, Traveled Outside the [place] in Last 30 Days - Family History Known Family History: Positive: Hypertension, Diabetes - Social History Alcohol Use: None Substance Use Type: Reports: None Smoking Status (MU): Former Smoker Type: Cigarettes Have You Smoked in the Last Year: No Review of Systems Negative: Fever Gastrointestinal: Other - rectal pain Positive: Nausea, Other - constipation and hemorrhoid irritation. All Other Systems Reviewed And Are Negative: Yes Physical Exam - Summary Physical Exam Summary: VITAL SIGNS: Reviewed. GENERAL: Patient is a well-developed and nourished female who is lying comfortable in the stretcher. Patient is not in any acute respiratory distress. HEAD AND FACE: No signs of trauma. No ecchymosis, hematomas or skull depressions. No sinus tenderness. EYES: PERRLA, EOMI x 2, No injected conjunctiva, no nystagmus. EARS: Hearing grossly intact. Ear canals and tympanic membranes are within normal limits. MOUTH: Oropharynx within normal limits. NECK: Supple, trachea is midline, no adenopathy, no JVD, no carotid bruit, no c- spine tenderness, neck with full ROM. CHEST: Symmetric, no tenderness at palpation LUNGS: Clear to auscultation bilaterally. No wheezing or crackles. CVS: Regular rate and rhythm, S1 and S2 present, no murmurs or gallops appreciated. ABDOMEN: Soft, non-tender. No signs of distention. No rebound no guarding, and no masses palpated. Bowel sounds are normal. EXTREMITIES: FROM in all major joints, no edema, no cyanosis or clubbing. NEURO: Alert and oriented x 3. No acute neurological deficits. Speech is normal and follows commands. SKIN: Dry and warm Rectal exam: multiple external hemorrhoids, vault is empty no stool, there is no gross blood Triage Information Reviewed: Yes Vital Signs On Initial Exam: Initial Vitals Temp Pulse Resp BP Pulse Ox 97.8 F 101 20 164/86 99 03/16/18 11:45 03/16/18 11:45 03/16/18 11:45 03/16/18 11:45 03/16/18 11:45 Vital Signs Reviewed: Yes Diagnostics - Vital Signs Vital Signs Temp Pulse Resp BP Pulse Ox 03/16/18 11:45 97.8 F 101 20 164/86 99 - Laboratory Result Diagrams: 03/16/18 12:44 03/16/18 12:44 Lab Statement: Any lab studies that have been ordered have been reviewed, and results considered in the medical decision making process. - Radiology abd xray Radiology Interpretation Completed By: Radiologist - SCATTERED AIR-FLUID LEVELS WITHIN MILDLY DISTENDED COLON. THIS IS A NONSPECIFIC FINDING ALTHOUGH WHICH IS JUST A PARALYTIC ILEUS, COLITIS OR LESS LIKELY A LOW-GRADE OBSTRUCTION. ED physician has reviewed this radiology report - CT CT ABD/Pelvis CT Interpretation Completed By: Radiologist - There is fluid throughout the colon with air-fluid levels suggestive of gastroenteritis. Fecal stasis is noted in the rectum and sigmoid colon. No other masses or fluid collections are noted. ED physician has reviewed this radiology report. GIGU Course/Dx - Course Assessment/Plan: This patient is a 77-year-old female who presents to the emergency department with a chief complaint of having constipation and rectal pain. The patient reports that she has not had a bowel movement since last Monday. Patient took MiraLAX 3 times yesterday with no significant improvement of symptoms. Patient has history of an abdominal surgery status post appendectomy. The rectal exam the vault is empty with multiple external hemorrhoids. Blood work without any significant abnormality except for glucose of 137. CRP is 17.4. Occult blood is negative for blood. X-ray of the abdomen impression: is scattered air-fluid levels within the mildly distended colon. This is a nonspecific findings although he may be a secondary to paralytic ileus , colitis or less likely low-grade obstruction. Abdominopelvic CT impression: there is a fluid throughout the colon with air-fluid levels suggestive of gastroenteritis. Fecal stasis is noted in the rectum and sigmoid colon. No other masses or fluid collections noted. In the ED course the patient was given IV fluids, the patient was given lactulose, MiraLAX, magnesium site treatment and a Fleet enema. At this time I discussed all the findings and test results with the patient and she will be discharged home with follow-up with primary care physician. Patient will continue taking Maalox as needed. Patient is hemodynamically stable alert oriented 3. - Diagnoses Provider Diagnoses: Constipation Discharge - Sign-Out/Discharge Documenting (check all that apply): Patient Departure - Discharge Plan Condition: Stable Disposition: HOME Patient Education Materials: Constipation (ED) Referrals: Kyle Johnson MD [Primary Care Provider] - Additional Instructions: RETURN TO THE EMERGENCY DEPARTMENT FOR CHANGING OR WORSENING SYMPTOMS. FOLLOW UP WITH PCP IN 1-2 DAYS. - Billing Disposition and Condition Condition: STABLE Disposition: Home - Attestation Statements Document Initiated by Scribe: Yes Documenting Scribe: Quan Ponce Provider For Whom Scribe is Documenting (Include Credential): Froylan Osullivan MD Scribe Attestation: Quan Ramirez scribed for Froylan Osullivan MD on 03/16/18 at 1734. Scribe Documentation Reviewed: Yes Provider Attestation: The documentation as recorded by the Quan carbajal accurately reflects the service I personally performed and the decisions made by me, Froylan Osullivan MD
[2018-03-16 12:59] LABS: ABS Basophils 0 10^3/ul (0-0.2); ABS Eosinophils 0.2 10^3/ul (0-0.6); ABS Lymphocytes 1.4 10^3/ul (1.0-4.8); ABS Monocytes 0.6 10^3/ul (0-0.8); ABS Nucleated RBC 0 10^3/ul; Eosinophil % 2.3 % (0-6); Hematocrit 37 % (35-47); Lymphocyte % 19.7 % (25-47); Mean Corpuscular HGB Conc 33 g/dl (31-36); Mean Corpuscular Hemoglobin 26 pg (27-31); Mean Corpuscular Volume 79 fL (80-97); Mean Platelet Volume 7.4 um3 (7.4-10.4); Nucleated Red Blood Cells % 0.1; Platelet Count 277 10^3/ul (150-450); Red Blood Count 4.66 10^6/ul (4.00-5.40); Red Cell Distribution Width 15 % (10.5-15); White Blood Count 7.3 10^3/ul (3.5-10.8)
[2018-03-16 13:41] LABS: EGFR Non-African American 55.2 (>60)
--- NOTE | 2018-03-16 13:45 | RAD ---
INDICATION: Abdominal pain and constipation. COMPARISON: There are no relevant prior studies available for comparison. TECHNIQUE: Supine and upright views of the abdomen were obtained. FINDINGS: The stomach and small bowel appear nondistended. There appear to be scattered air-fluid levels which appear mainly within the colon which is mildly distended. There are several surgical clips which project over the mid and lower abdomen. IMPRESSION: SCATTERED AIR-FLUID LEVELS WITHIN MILDLY DISTENDED COLON. THIS IS A NONSPECIFIC FINDING ALTHOUGH WHICH IS JUST A PARALYTIC ILEUS, COLITIS OR LESS LIKELY A LOW-GRADE OBSTRUCTION.
[2018-03-16] MEDS ORDERED: Iodixanol* (CONTRAST) 320 MG/ML 100 ML SDV IV ONE (14:22)
[2018-03-16] MEDS ORDERED: Ondansetron ODT TAB* 4 MG PO ONE (15:05)
--- NOTE | 2018-03-16 16:53 | RAD ---
Indication: Abdominal pain. Contrast:Administered 125.1 ml of VISAPAQUE 320 mg/ml CT of the abdomen and pelvis was performed after oral and IV contrast administration. Coronal and sagittal reconstructed images were obtained. The lung bases demonstrate no pleural fluid, nodules or masses. Heart is of normal size without evidence of pericardial effusion. Liver is normal in size. No focal lesions or intrahepatic duct dilatation is noted. The gallbladder demonstrates no calcified gallstones. No pericholecystic fluid or wall thickening is noted. The spleen is normal in size with several calcifications within the spleen consistent with old granulomatous disease. No adrenal masses are noted. The kidneys demonstrate symmetric nephrograms without focal lesions. No retroperitoneal lymphadenopathy is noted. No dilated loops of bowel are noted. Aorta demonstrates no evidence of aneurysmal lesion. Small bowel demonstrates no abnormal dilatation. There is contrast in the right colon. The right colon is distended and filled with fluid. There is fecal stasis noted in the rectum and colon. Findings are suggestive of gastroenteritis. Urinary bladder is otherwise unremarkable. The patient appears to be status post hysterectomy. The bony structures demonstrate degenerative disc disease of the L2-L3 and L1-L2. IMPRESSION: There is fluid throughout the colon with air-fluid levels suggestive of gastroenteritis. Fecal stasis is noted in the rectum and sigmoid colon. No other masses or fluid collections are noted.
[2018-03-16] MEDS ORDERED: Sodium Phosphate ADULT ENEMA* 118 ml bottle PR ONE (16:59)
[2018-03-16] MEDS ORDERED: Magnesium CITRATE* 300 ML BTL PO ONE (16:59)
[2018-03-16] MEDS ORDERED: Polyethylene Glycol 3350 BTL* 238 GM BTL PO ONE (16:59)
[2018-03-16] MEDS ORDERED: Ketorolac INJ* 30 MG/ML 1 ML VIAL IV PUSH ONE (16:59)
[2018-03-16] MEDS ORDERED: Polyethylene Glycol 3350* 17 GM PACKET ONE (17:15)
[2018-03-16 17:42] VITALS: BP 149/79
== END 2018-03-16 17:41 | disposition home or self-care (01) ==
LOC: ED 11:42
DX: K59.00 Constipation, unspecified (principal); Z87.891 Personal history of nicotine dependence
CPT/HCPCS: 36415; 74019; 74177; 80053; 82270; 85025; 86140; 96374; 99283; A9270-GY; J1885; Q9967

== ENCOUNTER 2020-11-19 12:05 | Observation (INO) ==
[~2020-11-19 12:05] MED LIST: Buffered Lidocaine 1% SYRIN 1 ml INTRADERM ONE; Lactated Ringers 1000 ml BAG 1,000 ML IV SCH
[2020-11-19] MEDS ORDERED: Clindamycin 900 MG/D5W BAG 900 MG/50 ML BAG IVPB ONE (12:21)
[2020-11-19] MEDS ORDERED: HYDROmorphone 1 MG/1 ML SYRINGE ONE ×2 (12:25→17:37)
[2020-11-19] MEDS ORDERED: Rocuronium 50 mg VIAL 10 mg/ml 5 ml VIAL (50 mg) ONE (12:25)
[2020-11-19] MEDS ORDERED: Ondansetron 4 mg VIAL 2 MG/ML 2 ml VIAL ONE (12:26)
[2020-11-19] MEDS ORDERED: Dexamethasone IV 4 MG/ML VIAL 1 ml VIAL ONE (12:26)
[2020-11-19] MEDS ORDERED: Phenylephrine IV 10 MG/ML 1 ml VIAL ONE (12:26)
[2020-11-19] MEDS ORDERED: Glycopyrrolate IV 0.2 MG/ML 1 ML VIAL ONE (12:26)
[2020-11-19] MEDS ORDERED: Lidocaine 2% PF 5 ML VIAL ONE (12:26)
[2020-11-19] MEDS ORDERED: Propofol 10 MG/ML 20 ML BTL ONE (12:26)
[2020-11-19] MEDS ORDERED: Famotidine IV 10 MG/ML 2 ml VIAL (20 mg) ONE (13:43)
[2020-11-19] MEDS ORDERED: DiMENhydriNATE IV 50 mg/ml 1 ml VIAL IV PUSH PRN (16:37)
[2020-11-19] MEDS ORDERED: diPHENhydraMINE IV 50 MG/ML 1 ml VIAL (BENADRYL) IV PRN (16:37)
[2020-11-19] MEDS ORDERED: Naloxone 0.4 mg VIAL 0.4 mg/ml 1 ml VIAL IV PRN (16:37)
[2020-11-19] MEDS ORDERED: Acetaminophen IV 1 GM/100ML 1,000 MG/100 ML VIAL IVPB ONE (17:55)
[2020-11-19] MEDS ORDERED: Acetaminophen IV 1 GM/100ML 100 ML ONE (17:58)
[2020-11-19] MEDS ORDERED: fentaNYL 100 mcg/2 ml 50 MCG/ML VIAL ONE (18:24)
[2020-11-19] MEDS: fentaNYL 100 mcg/2 ml 50 MCG/ML VIAL IV PRN ×2 (18:25→19:17)
[2020-11-19] MEDS ORDERED: Albuterol HFA INHALER 8 gm MDI INH PRN (20:18)
[2020-11-19] MEDS ORDERED: Lactated Ringers 1000 ml BAG 1,000 ML IV SCH (21:00)
[2020-11-19] MEDS: oxyCODONE/Acetamin 5/325 mg TAB PO PRN (22:03)
[2020-11-19] MEDS: Potassium Chlor 10 meq TAB PO SCH (22:03)
[2020-11-19] MEDS: Heparin 5000 UNITS/ML 1 mL VIAL SUBCUT SCH (22:04)
[2020-11-19] MEDS: Ondansetron 4 mg VIAL 2 MG/ML 2 ml VIAL IV PRN (22:09)
[2020-11-19] MEDS: Olopatadine 0.2% (NF) 1 DROP BTL BOTH EYES SCH (22:37)
[2020-11-20] MEDS: Heparin 5000 UNITS/ML 1 mL VIAL SUBCUT SCH ×2 (07:22→14:44)
[2020-11-20] MEDS: Potassium Chlor 10 meq TAB PO SCH (08:20)
[2020-11-20] MEDS: Ondansetron 4 mg VIAL 2 MG/ML 2 ml VIAL IV PRN (08:33)
[2020-11-20] MEDS ORDERED: Aspirin EC 81 mg TAB.EC (enteric coated) PO SCH (09:00)
[2020-11-20] MEDS: oxyCODONE/Acetamin 5/325 mg TAB PO PRN (09:29)
[2020-11-20] MEDS: Olopatadine 0.2% (NF) 1 DROP BTL BOTH EYES SCH (09:39)
[2020-11-20 10:01] LABS: Urine Appearance Clear; Urine Bilirubin Negative (Negative); Urine Blood Negative (Negative); Urine Color Yellow; Urine Glucose Negative (Negative); Urine Ketones Negative (Negative); Urine Nitrite Negative (Negative); Urine Protein Negative (Negative); Urine Specific Gravity 1.008 (1.002-1.030); Urine Urobilinogen Negative (Negative)
[2020-11-20 11:11] VITALS: BP 129/49
== END 2020-11-20 15:02 | disposition home or self-care (01) ==
LOC: OR 12:05 → INTOOBSV 20:13 → SSU 20:13
PROVIDERS: ADMIT Surgery; ATTEND Surgery